=== PATIENT | male | born 1970 | race Caucasian/White ===

== ENCOUNTER 2018-06-17 13:55 | Inpatient (IN) | payer MEDICAID ==
[~2018-06-17] VITALS: Ht 170.2 cm; Wt 81.8 kg
[2018-06-17] VITALS (7 sets, daily range): BP systolic 108–165; BP diastolic 68–100; BMI 25.9
[2018-06-17] MEDS ORDERED: GLUCOPHAGE500 MG PO (13:59)
[2018-06-17] MEDS ORDERED: LANTUS INSULIN10 ML SC (13:59)
[2018-06-17] MEDS ORDERED: PRAVACHOL20 MG PO (13:59)
[2018-06-17] MEDS ORDERED: METOPROLOL TART25 MG PO (14:00)
[2018-06-17 14:49] LABS: HEMATOCRIT 35.8 % (42.0-54.0); HEMOGLOBIN 12.7 g/dL (13.5-17.5); LYMPHOCYTES 17.8 % (15-50); MCH 31.1 pg (26.0-34.0); MCHC 35.5 g/dL (31.0-37.0); MCV 87.7 fL (80.0-100.0); MEAN PLATELET VOLUME 10.7 fL (7.4-10.4); NEUTROPHILS 73.3 % (40-80); PLATELET COUNT 113 10x3/uL (130-400); RBC 4.08 10x6/uL (4.20-6.10); RDW 12.6 % (11.5-14.5); WBC 16.3 10x3/uL (4.8-10.8)
[2018-06-17 15:01] LABS: ALBUMIN 3.4 g/dL (3.4-5.0); ALKALINE PHOSPHATASE 64 U/L (46-116); ALT (SGPT) 35 U/L (10-68); BILIRUBIN - TOTAL 0.74 mg/dL (0.2-1.3); CALC OSMOLALITY 270 mosm/kg (275-300); CALCIUM 8.5 mg/dL (8.5-10.1); CARBON DIOXIDE 23.8 mmol/L (21.0-32.0); CHLORIDE - SERUM 87 mmol/L (98-107); CREATININE - SERUM 2.5 mg/dL (0.6-1.3); GLUCOSE 160 mg/dL (74-106); POTASSIUM - SERUM 3.8 mmol/L (3.5-5.1); PROTEIN - SERUM 7.3 g/dL (6.4-8.2); SODIUM 129 mmol/L (136-145); UREA NITROGEN 37 mg/dL (7-18); eGFR NON AFRICAN AMERICAN 29 mL/min (90-120)
[2018-06-17 15:03] LABS: INR 1.06 (0.85-1.17); PROTIME 13.3 SECONDS (11.6-15.0)
[2018-06-17 15:19] LABS: CREATINE KINASE 1615 UL (21-232)
[2018-06-17 15:21] LABS: CKMB 19.7 U/L (0.0-3.6)
--- NOTE | 2018-06-17 16:30 | NUR ---
INFORMED BY ANOTHER NURSE THAT THE PATIENT HAS PULLED OUT HIS IV AND TAKEN HIS LEADS OFF, THE PATIENT'S IV CATHETER WAS IN HIS BED, INTACT, ANOTHER NURSE HAS PUT A DRESSING ON THE IV SITE AND IT IS NOT BLEEDING ALTHOUGH THERE IS BLOOD ON THE FLOOR. THE PATIENT IS REORIENTED TO SITUATION AND IS CALM, IS TALKING ABOUT OTHER PEOPLE IN THE ROOM THAT HE SEES.
--- NOTE | 2018-06-17 17:10 | NUR ---
RECEIVED PT FROM ER. VSS. HR TACHYCARDIC. BANANA BAG INFUSING AT 125 VIA RIGHT HAND IV. WILL CHECK FOR ORDERS
--- NOTE | 2018-06-17 18:09 | NUR ---
INSTERTED CAUDE CATHETER AT THIS TIME. RESTRAINTS ORDERED TO KEEP FROM PULLING AT TUBES AND LINES. PT IS VERY NON-COMPLIANT AND COMBATIVE
--- NOTE | 2018-06-17 18:12 | MORECARE ---
CASE MANAGEMENT DISCHARGE SUMMARY PATIENT: JUAN ALBERTO UNIT: [id number] ADM DATE: 06/17/18 AGE: 48 : 66 SEX: M ROOM/BED: D.2305 AUTHOR: REBA CHONG PHYSICIAN: REFERRING PHYSICIAN: INGRID BURNETTE MD DATE OF SERVICE: 06/17/18 Discharge Plan Patient Name: JUAN ALBERTO Facility: [facility]:[place] : 1970 Planned Disposition: Anticipated Discharge Date: 06/20/18 Discharge Date: Expected LOS: 3 Initial Reviewer: [email or web address] Initial Review Date: 06/17/2018 Generated: 06/17/18 7:11 pm DCP- Discharge Planning Updated by [email or web address]: Marlene Montano on 06/17/18 5:[address] Patient Name: JUAN ALBERTO Admission Status: ER Accout number: [id number] Admission Date: 06-17-2018 : 1970 Admission Diagnosis: Attending: INGRID BURNETTE Current LOS: 1 Anticipated DC Date: 06-20-2018 Planned Disposition: Primary Insurance: UNINSURED DISCOUNT PLAN Discharge Planning Comments: CM attempted to complete initial discharge planning assessment however patient not able to answer questions at this time. He was talking to people that were not in the room and unable to focus or remember who his doctor or pharmacy was. Cco & President: Marlene Montano Patient Name: JUAN ALBERTO Page [id number] at 1812 All edits/amendments must be made on the electronic document DICTATION DATE: 06/17/181810 MACHINIST TOOL AND DIE: AMARA 06/17/181810 RPT#: [id number] DC DATE: STATUS: ADM IN [facility] [address] [place] [address] END OF REPORT
--- NOTE | 2018-06-17 18:30 | NUR ---
NOTIFIED DR. BURNETTE PATIENT IS IN ICU NOW
[2018-06-17 19:04] LABS: APPEARANCE HAZY (CLEAR); COLOR YELLOW (YELLOW)
[2018-06-17 19:05] LABS: BILIRUBIN NEGATIVE (NEGATIVE); GLUCOSE 50 mg/dL (NEGATIVE); KETONE SMALL mg/dL (NEGATIVE); NITRITE NEGATIVE (NEGATIVE); PROTEIN 1+ mg/dL (NEGATIVE); UROBILINOGEN NORMAL (NORMAL)
[2018-06-17 19:06] LABS: AMORPHOUS SEDIMENT <1+ /lpf (NONE SEEN); BACTERIA MODERATE /hpf (NONE SEEN); MUCUS <1+ /lpf (NONE SEEN)
[2018-06-17 19:14] LABS: UDS - AMPHET NEGATIVE QUAL (NEGATIVE); UDS - BARB NEGATIVE QUAL (NEGATIVE); UDS - BENZO NEGATIVE QUAL (NEGATIVE); UDS - COCAINE NEGATIVE QUAL (NEGATIVE); UDS - OPIATE POSITIVE QUAL (NEGATIVE); UDS - PCP NEGATIVE QUAL (NEGATIVE); UDS - THC NEGATIVE QUAL (NEGATIVE)
--- NOTE | 2018-06-17 19:30 | NUR ---
ASSESSMENT COMPLETE, PER NURSING FLOWSHEET, PATIENT REPOSITIONED, ORAL CARE PROVIDED
--- NOTE | 2018-06-17 21:00 | NUR ---
PATIENT REPOSITIONED, PARTIAL BATH GIVEN, MUCH THIS PATIENT WOULD TOLERATE SECONDARY TO AGGITATION. PATIENT IS EXTREMELY AGGITATED AND CONFUSED AT THIS TIME. COMPLETE LINEN CHANGE FOR THIS PATIENT REQUIRED X3 NURSES
--- NOTE | 2018-06-17 22:30 | NUR ---
ATTEMPTED TO ADMINISTER PO ATIVAN, PER M.D. ORDER TO THIS PATIENT. PATIENT DID TAKE PO MEDICATION INTO MOUTH, THEN WHEN THIS NURSE ATTEMPTED TO GIVE THIS PATIENT A DRINK OF WATER, HE LEANED UP WITH MOUTH OPEN WIDE POSSIBLE AND BIT A HOLE INTO THE STYROFOAM CUP, THEN SPITTING OUT PO MEDICATION AND ALL STYROFOAM, LID, AND WATER INGESTED. PARTIAL LINEN CHANGE FOR SPILLING OF DRINK AND NEW ORDER FOR IV ATIVAN OBTAINED FROM M.D. FOR THIS PATIENT FOR FUTURE ATIVAN ADMINISTRATION. PO MEDICATION WASTED APPROPRIATELY IN PYXIS.
--- NOTE | 2018-06-17 23:00 | NUR ---
RE-ASSESSMENT COMPLETE, PER NURSING FLOWSHEET, PATIENT REPOSITIONED, ORAL CARE PROVIDED, CONTINUE POC
[2018-06-18] VITALS (23 sets, daily range): BP systolic 99–152; BP diastolic 55–93; Ht 170.2 cm; Wt 81.8 kg
--- NOTE | 2018-06-18 01:00 | NUR ---
PATIENT REPOSITIONED, CONNELL CARE PROVIDED, CONTINUE POC
--- NOTE | 2018-06-18 03:00 | NUR ---
RE-ASSESSMENT COMPLETE, PER NURSING FLOWSHEET, PATIENT REPOSITIONED, ORAL CARE PROVIDED
[2018-06-18 03:47] LABS: BASOPHILS 0.1 % (0-2); EOSINOPHILS 0.1 % (0-7); HEMATOCRIT 35.2 % (42.0-54.0); HEMOGLOBIN 12.2 g/dL (13.5-17.5); IMMATURE GRANULOCYTES 0.6 % (0-5); LYMPHOCYTES 12.9 % (15-50); MCH 31.2 pg (26.0-34.0); MCHC 34.7 g/dL (31.0-37.0); MEAN PLATELET VOLUME 10.9 fL (7.4-10.4); MONOCYTES 13.9 % (2-11); NEUTROPHILS 72.4 % (40-80); PLATELET COUNT 109 10x3/uL (130-400); RBC 3.91 10x6/uL (4.20-6.10); RDW 13.3 % (11.5-14.5); WBC 19.7 10x3/uL (4.8-10.8)
[2018-06-18 04:40] LABS: ALBUMIN 3.3 g/dL (3.4-5.0); ALKALINE PHOSPHATASE 70 U/L (46-116); ALT (SGPT) 39 U/L (10-68); BILIRUBIN - TOTAL 0.81 mg/dL (0.2-1.3); CALC OSMOLALITY 276 mosm/kg (275-300); CALCIUM 8.6 mg/dL (8.5-10.1); CARBON DIOXIDE 19.8 mmol/L (21.0-32.0); CHLORIDE - SERUM 93 mmol/L (98-107); GLUCOSE 133 mg/dL (74-106); MAGNESIUM - SERUM 2.7 mg/dL (1.8-2.4); PHOSPHOROUS 3.6 mg/dL (2.5-4.9); POTASSIUM - SERUM 3.9 mmol/L (3.5-5.1); PROTEIN - SERUM 7.3 g/dL (6.4-8.2); SODIUM 133 mmol/L (136-145); UREA NITROGEN 38 mg/dL (7-18); eGFR NON AFRICAN AMERICAN 38 mL/min (90-120)
[2018-06-18 04:41] LABS: CREATINE KINASE 3526 UL (21-232)
--- NOTE | 2018-06-18 05:00 | NUR ---
PATIENT REPOSITIONED, CONTINUES TO WAKE AND BECOME AGGITATED EASILY, WILL CONTINUE TO MONITOR
--- NOTE | 2018-06-18 07:00 | NUR ---
REC'D CARE OF PT. LETHARGIC BUT ORIENTED X3. SAYS LAST DRINK WAS A WEEK AGO. REQUESTED I CALL HIS MOM. OBLIGED. UPDATED MOM PER HIS REQUEST.
--- NOTE | 2018-06-18 10:58 | NUR ---
AGITATED. ATIVAN BEING ADMN. PER ORDERS. RELIEVES AGITATION FOR A SHORT PERIOD OF TIME.
--- NOTE | 2018-06-18 11:14 | NUR ---
REASSESSMENT COMPLETED PER FLOW SHEET. NO ACUTE CHANGES.
--- NOTE | 2018-06-18 11:59 | NUR ---
CONTINUES TO BE AGITATED.
--- NOTE | 2018-06-18 12:12 | NUR ---
REPOSITIONS SELF IN BED CONTINUALLY.
--- NOTE | 2018-06-18 13:15 | NUR ---
DENIES NEEDS. VSS.
--- NOTE | 2018-06-18 14:31 | NUR ---
reassessment completed via flow sheet. no acute changes.
--- NOTE | 2018-06-18 16:10 | NUR ---
RESTING WITH EYES CLOSED. VSS. TACHYCARDIC RATE OF 113. RIGHT AC WITH BICARB GTT. SATTING 95% ON 2L O2 VIA NC.
--- NOTE | 2018-06-18 17:18 | NUR ---
AGITATED. TRYING TO CLIMB OOB. RESTRAINED FOR HIS PROTECTION. QUANG ARELLANO.
--- NOTE | 2018-06-18 18:09 | NUR ---
LESS AGITATION NOW SINCE ATIVAN GIVEN.VSS. TACHYCARDIC AT 118.
--- NOTE | 2018-06-18 18:48 | NUR ---
ALERT. AGITATION BETTER. REQUESTED SOMETHING TO EAT. GOT TURKEY SANDWICH AND DIET DRINK.
--- NOTE | 2018-06-18 19:30 | NUR ---
ASSESSMENT COMPLETE, PER NURSING FLOWSHEET, PATIENT REPOSITIONED, ORAL CARE PROVIDED
--- NOTE | 2018-06-18 21:00 | NUR ---
PATIENT WATCHING TV, NO NEEDS VOICED OR NOTED AT THIS TIME
--- NOTE | 2018-06-18 23:00 | NUR ---
RE-ASSESSMENT COMPLETE, PATIENT REPOSITIONED, RESTRAINTS REMOVED FOR ATTEMPTS TO REMOVE ALL TOGETHER, WILL CONTINUE TO MONITOR
[2018-06-19] VITALS (18 sets, daily range): BP systolic 104–154; BP diastolic 63–100
--- NOTE | 2018-06-19 | NUR ---
RESTRAINTS DISCONTINUED
--- NOTE | 2018-06-19 01:00 | NUR ---
CONNELL CARE PROVIDED, PATIENT REPOSITIONS SELF, SANDWICH PROVIDED, CONTINUE POC
--- NOTE | 2018-06-19 03:00 | NUR ---
RE-ASSESSMENT COMPLETE, PER NURSING FLOWSHEET, PATIENT INDEPENDENTLY REPOSITIONS SELF, NO OTHER NEEDS VOICED OR NOTED
[2018-06-19 03:40] LABS: CKMB 3.6 U/L (0.0-3.6); CREATINE KINASE 1075 UL (21-232)
--- NOTE | 2018-06-19 05:00 | NUR ---
PATIENT WATCHING TV AND READING NEWSPAPER, VSS, WILL CONTINUE TO MONITOR
--- NOTE | 2018-06-19 07:00 | NUR ---
REC'D CARE OF PT. REQUESTED NICOTENE PATCH. A&O X3.
--- NOTE | 2018-06-19 07:10 | NUR ---
SWAB OBTAINED FROM [facility] AND TOOK TO LAB
--- NOTE | 2018-06-19 07:15 | NUR ---
DC'D CONNELL FROM BLADDER.
--- NOTE | 2018-06-19 07:26 | NUR ---
BEING PLACED ON BIPAP BY RT NOW.
--- NOTE | 2018-06-19 07:52 | NUR ---
GROOMING SUPPLIES PROVIDED. SITTING ON SOB GIVING HIMSELF A BATH.
--- NOTE | 2018-06-19 07:52 | NUR ---
HAIR SHAMPOO CAP SUPPIED ALONG WITH SOAP TOWELS DEODARANT TOOTH PASTE AND BRUSH FOR INDEPENDENT CARE.
--- NOTE | 2018-06-19 08:08 | NUR ---
OOB TO CHAIR.
--- NOTE | 2018-06-19 08:12 | NUR ---
SITTING IN CHAIR. DENIES OTHER NEEDS.
--- NOTE | 2018-06-19 09:05 | NUR ---
NO LABS ORDERED FOR ELECTROLYTE PROTOCOL.
--- NOTE | 2018-06-19 10:46 | NUR ---
BACK TO BED INDEPENDENTLY.
[2018-06-19 10:58] LABS: ALBUMIN 2.6 g/dL (3.4-5.0); ANION GAP 18.3 mmol/L (8-16); BILIRUBIN - TOTAL 0.4 mg/dL (0.2-1.3); CALCIUM 7.7 mg/dL (8.5-10.1); CARBON DIOXIDE 28.3 mmol/L (21.0-32.0); CREATININE - SERUM 1.4 mg/dL (0.6-1.3); POTASSIUM - SERUM 3.6 mmol/L (3.5-5.1); PROTEIN - SERUM 6.8 g/dL (6.4-8.2)
[2018-06-19 10:59] LABS: BASOPHILS 0.2 % (0-2); EOSINOPHILS 0.5 % (0-7); HEMATOCRIT 34.5 % (42.0-54.0); HEMOGLOBIN 11.4 g/dL (13.5-17.5); IMMATURE GRANULOCYTES 0.4 % (0-5); LYMPHOCYTES 24.2 % (15-50); MCH 30.5 pg (26.0-34.0); MEAN PLATELET VOLUME 10.7 fL (7.4-10.4); MONOCYTES 13.9 % (2-11); NEUTROPHILS 60.8 % (40-80); PLATELET COUNT 126 10x3/uL (130-400); RBC 3.74 10x6/uL (4.20-6.10); RDW 13.3 % (11.5-14.5)
[2018-06-19 11:10] LABS: MCV 92.2 fL (80.0-100.0); WBC 10.9 10x3/uL (4.8-10.8)
--- NOTE | 2018-06-19 11:29 | NUR ---
BICARB GTT INITIATED AT 50 CC PER HOUR.
--- NOTE | 2018-06-19 12:36 | NUR ---
MOTHER AT BEDSIDE. UPDATED BY PT.
--- NOTE | 2018-06-19 13:30 | NUR ---
GETS UP WITHOUT ASSSISTANCE AND USES URINAL.
--- NOTE | 2018-06-19 14:45 | NUR ---
REASSESSMENT COMPLETED PER FLOW SHEET. NO ACUTE CHANGES.
--- NOTE | 2018-06-19 16:30 | NUR ---
DENIES NEEDS. REPOSITIONS SELF IN BED. GETS SELF UP TO USE URINAL. CLWR. CPOC.
--- NOTE | 2018-06-19 17:28 | NUR ---
CONSUMED 100% OF DINNER TRAY.
--- NOTE | 2018-06-19 23:20 | NUR ---
RECIEVED REPORT FROM CHARLI SILVA IN ICU AT 194. RECIEVED IN BED AT 2024. PULLED IV OUT WHEN TRANSFERING TO BED. ALERT AND ORIENTED X4. UP AD NICHOLE. HAS TAKEN A SHOWER. ABRASIONS TO ARMS AND LEGS. SCBBED ARE TO RIGHT KNEE AND LEFT ELBOW. 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 PASSING LOTS OF FLATULANCE. IV RESTARTED TO RIGHT FA. SODIUM BICARB INFUSING AT 50CC/HR. DENIES ANY OTHER NEEDS.
--- NOTE | 2018-06-20 03:01 | NUR ---
RESTING IN BED WITH EYES CLOSED. NO S/S OF DISTRESS OBSERVED. CALL LIGHT IN REACH.
[2018-06-20 03:55] VITALS: BP 131/87
[2018-06-20 07:21] LABS: BASOPHILS 0.3 % (0-2); EOSINOPHILS 1.3 % (0-7); HEMATOCRIT 34.9 % (42.0-54.0); HEMOGLOBIN 11.6 g/dL (13.5-17.5); IMMATURE GRANULOCYTES 0.3 % (0-5); MCH 30.7 pg (26.0-34.0); MCHC 33.2 g/dL (31.0-37.0); MCV 92.3 fL (80.0-100.0); MEAN PLATELET VOLUME 10.3 fL (7.4-10.4); MONOCYTES 18.4 % (2-11); NEUTROPHILS 47.7 % (40-80); RBC 3.78 10x6/uL (4.20-6.10)
[2018-06-20 07:22] LABS: PLATELET COUNT 166 10x3/uL (130-400); WBC 7.1 10x3/uL (4.8-10.8)
--- NOTE | 2018-06-20 07:25 | NUR ---
ASSESSMENT COMPLETED. ALERT AND ORIENTED.TELEMERTY SHOWS ST 104. UP AB NICHOLE. IV TO RIGHT FA AT 50. UP AB NICHOLE. GIVEN KDUR FOR LOW potassium level.SORES AND SCRATCHES TO LEGS AND SCRAPES TO KNEES AND ELBOS. WILL MONITOR
[2018-06-20 08:28] VITALS: BP 136/93
[2018-06-20 09:36] LABS: ALBUMIN 2.9 g/dL (3.4-5.0); BILIRUBIN - TOTAL 0.49 mg/dL (0.2-1.3); CALCIUM 7.7 mg/dL (8.5-10.1); CREATININE - SERUM 1.4 mg/dL (0.6-1.3); POTASSIUM - SERUM 3.2 mmol/L (3.5-5.1); PROTEIN - SERUM 6.5 g/dL (6.4-8.2)
[2018-06-20 09:41] LABS: ANION GAP 7.8 mmol/L (8-16); CARBON DIOXIDE 38.4 mmol/L (21.0-32.0)
[2018-06-20 12:11] VITALS: BP 128/89
[2018-06-20 16:48] VITALS: BP 186/98
--- NOTE | 2018-06-20 18:18 | NUR ---
I have reviewed this patient and I concur with the Shift Assessment completed by the Licensed Practical Nurse today this shift.
[2018-06-20 19:52] VITALS: BP 178/101
[2018-06-20 23:55] VITALS: BP 146/97
--- NOTE | 2018-06-21 00:42 | NUR ---
RECIEVED UP IN BED WITH EYES OPEN AND TV ON. ALERT AND ORIENTED X4. IV TO RIGHT FA WITH SODIUM BICARB INFUSING AT 50ML/HR. DSG CDI WITH NO SWELLING OR REDNESS, TELEMETRY IN PLACE. AMBULATES IN HALLWAY WITH IV POLE. DENIES ANY NEEDS AT THIS TIME.
[2018-06-21 03:55] VITALS: BP 127/81
[2018-06-21 05:41] LABS: BASOPHILS 0.3 % (0-2); EOSINOPHILS 2.8 % (0-7); HEMATOCRIT 35.2 % (42.0-54.0); HEMOGLOBIN 11.7 g/dL (13.5-17.5); IMMATURE GRANULOCYTES 0.8 % (0-5); MCHC 33.2 g/dL (31.0-37.0); MCV 93.1 fL (80.0-100.0); MEAN PLATELET VOLUME 9.6 fL (7.4-10.4); MONOCYTES 21.7 % (2-11); NEUTROPHILS 40.4 % (40-80); PLATELET COUNT 233 10x3/uL (130-400); RBC 3.78 10x6/uL (4.20-6.10); RDW 13.2 % (11.5-14.5); WBC 6.1 10x3/uL (4.8-10.8)
[2018-06-21 06:08] LABS: ALBUMIN 2.8 g/dL (3.4-5.0); BILIRUBIN - TOTAL 0.33 mg/dL (0.2-1.3); CALCIUM 8.2 mg/dL (8.5-10.1); CARBON DIOXIDE 32.6 mmol/L (21.0-32.0); CREATININE - SERUM 1.4 mg/dL (0.6-1.3); POTASSIUM - SERUM 3.6 mmol/L (3.5-5.1); PROTEIN - SERUM 7.1 g/dL (6.4-8.2)
[2018-06-21 08:37] VITALS: BP 173/102
[2018-06-21 12:13] VITALS: BP 146/94
--- NOTE | 2018-06-21 14:08 | NUR ---
Nutrition Follow Up: Diabetic diet with 100% intake of meals past 2 days BG 271 today Spoke with pt about diabetic diet. Pt reports he has classes quarterly that he goes to at clinic in [place]. Pt has no questions about diabetic diet and is not interested in additional teaching at this time RD following
[2018-06-21] MEDS ORDERED: SULFAMETHOXAZOL1 TA3 PO (15:04)
[2018-06-21] MEDS ORDERED: FLORAJEN3 CAPS460 MG PO (15:04)
--- NOTE | 2018-06-21 16:31 | NUR ---
DC GIVEN TO PT
--- NOTE | 2018-06-21 16:50 | NUR ---
DC HOME PER PERSONAL CAR
--- NOTE | 2018-06-21 17:54 | MORECARE ---
CASE MANAGEMENT DISCHARGE SUMMARY PATIENT: JUAN ALBERTO UNIT: [id number] ADM DATE: 06/17/18 AGE: 48 : 66 SEX: M ROOM/BED: D.2126 AUTHOR: REBA CHONG PHYSICIAN: REFERRING PHYSICIAN: INGRID BURNETTE MD DATE OF SERVICE: 06/21/18 Discharge Plan Patient Name: JUAN ALBERTO Facility: [facility]:[place] : 1970 Planned Disposition: Home Anticipated Discharge Date: 06/21/18 Discharge Date: 06/21/2018 Expected LOS: 4 Initial Reviewer: [email or web address] Initial Review Date: 06/17/2018 Generated: 06/21/18 6:53 pm Comments DCP- Discharge Planning Updated by [email or web address]: Tony Wallis on 06/21/18 4:[address] Patient Name: JUAN ALBERTO Admission Status: ER Accout number: [id number] Admission Date: 06-17-2018 : 1970 Admission Diagnosis:ALTERED MENTAL STATUS, UNSPECIFIED Attending: INGRID BURNETTE Current LOS: 4 Anticipated DC Date: 06-21-2018 Planned Disposition: Home Primary Insurance: MEDICAID [place] PENDING Discharge Planning Comments: CM MET WITH PT IN ROOM TO DISCUSS DISCHARGE PLANNING AND NEEDS. PT REPORTS LIVING AT HOME INDEPENDENTLY AND ALONE. PT HAS NO MEDICAL EQUIPMENT AND NO OUTSIDE SERVICES ASSISTING IN THE HOME. CM DISCUSSED AVAILABILITY OF HOME HEALTH, REHAB SERVICES AND MEDICAL EQUIPMENT. PT DENIES DISCHARGE NEEDS, REPORTS HIS MOM IS ON THER WAY TO PICK HIM UP FOR DISCHARGE HOME. RACK MAKER NURSE NOTIFIED. Director Of Student Aid: Tony Wallis DCP- Discharge Planning Updated by [email or web address]: Marlene Montano on 06/17/18 5:[address] Patient Name: JUAN ALBERTO Admission Status: ER Accout number: [id number] Admission Date: 06-17-2018 : 1970 Admission Diagnosis: Attending: INGRID BURNETTE Current LOS: 1 Anticipated DC Date: 06-20-2018 Planned Disposition: Primary Insurance: UNINSURED DISCOUNT PLAN Discharge Planning Comments: CM attempted to complete initial discharge planning assessment however patient not able to answer questions at this time. He was talking to people that were not in the room and unable to focus or remember who his doctor or pharmacy was. Director Of Student Aid: Marlene Montano DCPIA - Discharge Planning Initial Assessment Updated by [email or web address]: Tony Wallis on 06/21/18 5:50 pm * Is the patient Alert and Oriented? Yes * How many steps to enter\exit or inside your home? * PCP [facility] IN [place] * Pharmacy [facility] IN [place] * Preadmission Environment Home Alone * ADLs Independent * Equipment None * Other Equipment NO MEDICAL EQUIPMENT PROVIDER PREFERENCE * List name and contact numbers for known caregivers / representatives who currently or will assist patient after discharge: NEFTALI ROYAL, ROMELIA GRAHAMNAINA, [facility], * Verbal permission to speak to the caregivers and representatives has been obtained from the patient. N/A * Community resources currently utilized None * Please name any agencies selected above. NONE * Additional services required to return to the preadmission environment? No * Can the patient safely return to the preadmission environment? Yes * Has this patient been hospitalized within the prior 30 days at any hospital? No Last DP export: 06/17/18 5:11 p Patient Name: JUAN ALBERTO Page [id number] at 1754 All edits/amendments must be made on the electronic document DICTATION DATE: 06/21/181752 FREIGHT BOOKER: AMARA 06/21/181752 RPT#: [id number] DC DATE:06/21/18 STATUS: DIS IN [facility] [address] [place] [address] END OF REPORT
== END 2018-06-21 16:51 | disposition home or self-care (01) | DRG 57 ==
LOC: D.ER 13:55 → D.M2 16:05 → D.EDHOLD 16:05 → D.ICU 16:05 → D.M2 06-19 20:48
PROVIDERS: Family Medicine; ADMIT Internal Medicine Nephrology; ATTEND Internal Medicine Nephrology
DX: G31.2 Degeneration of nervous system due to alcohol (principal); N17.9 Acute kidney failure, unspecified; F10.231 Alcohol dependence with withdrawal delirium; M62.82 Rhabdomyolysis; N39.0 Urinary tract infection, site not specified; E87.1 Hypo-osmolality and hyponatremia; T68.XXXA Hypothermia, initial encounter; D64.9 Anemia, unspecified; E11.9 Type 2 diabetes mellitus without complications; R36.9 Urethral discharge, unspecified; E87.6 Hypokalemia; Z86.73 Personal history of transient ischemic attack (TIA), and cerebral infarction without residual deficits